=== PATIENT | female | born 1975 | race Caucasian/White ===

== ENCOUNTER 2017-07-03 11:04 | Emergency (ER) | payer MEDICAID ==
[~2017-07-03] VITALS: Ht 170.2 cm; Wt 81.4 kg
[2017-07-03 11:41] LABS: BASOPHILS % (AUTO) 0.1 % (0-1); EOSINOPHILS # (AUTO) 0.2 X10'3 (0-0.9); EOSINOPHILS % (AUTO) 1.9 % (0-6); HEMATOCRIT 44.2 % (35.0-45.0); HEMOGLOBIN 14.8 g/dl (12.0-16.0); LYMPHOCYTES # (AUTO) 1.2 X10'3 (1.1-4.8); MEAN CORPUSCULAR HEMOGLOBIN 28.5 PG (27.0-31.0); MEAN CORPUSCULAR HGB CONC 33.4 % (33.0-36.5); MEAN CORPUSCULAR VOLUME 85.2 FL (78-98); MEAN PLATELET VOLUME 8.4 FL (7.4-10.4); MONOCYTES # (AUTO) 0.3 X10'3 (0-0.9); MONOCYTES % (AUTO) 3.5 % (2-12); NEUTROPHILS # (AUTO) 6.6 X10'3 (1.8-7.7); NEUTROPHILS % (AUTO) 79.5 % (42-75); PLATELET COUNT 308 X10'3 (140-440); RED BLOOD COUNT 5.19 X10'6 (4.20-5.60); RED CELL DISTRIBUTION WIDTH 13.3 % (11.5-14.5); WHITE BLOOD COUNT 8.3 X10'3 (4.5-11.0)
[2017-07-03 11:44] LABS: URINE HCG NEGATIVE (NEG)
[2017-07-03 11:48] LABS: CLARITY,URINE CLEAR (Clear); COLOR,URINE YELLOW (Yellow); GLUCOSE, URINE NEGATIVE (Neg); KETONES,URINE NEGATIVE (Neg); LEUKOCYTE ESTERASE ,URINE NEGATIVE (Neg); NITRITES, URINE NEGATIVE (Neg); OCCULT BLOOD,URINE TRACE-INTACT (Neg); PROTEIN,URINE NEGATIVE (Neg); UROBILINOGEN,URINE 0.2 E.U/dL (0.2-1.0)
[2017-07-03 11:50] LABS: PROTHROMBIN TIME 10.4 SECONDS (9.0-12.0)
[2017-07-03] MEDS ORDERED: HYDROmorphone 1 mg/ml syringe IV PRN (11:50)
[2017-07-03] MEDS ORDERED: normal saline 1000ML IV soln IVB ONE (11:50)
[2017-07-03] MEDS ORDERED: ondansetron/PF 4mg/2ml inj IV ONE ×2 (11:50→13:40)
[2017-07-03 11:52] LABS: UA COLLECTION TYPE VOIDED
[2017-07-03 11:54] LABS: BACTERIA,URINE NONE SEEN /HPF (Neg); MUCUS STRANDS FEW /LPF (Neg); RBC,URINE 0-2 /HPF (0-2); SQUAMOUS EPITHELIAL CELL,UR FEW /LPF (FEW); TRANSITIONAL EPI CELLS,URINE FEW /HPF; WBC,URINE 0-4 /HPF (0-4)
[2017-07-03 11:57] LABS: ALANINE AMINOTRANSFERASE 27 U/L (12-78); ALBUMIN 4.5 G/DL (3.4-5.0); ALKALINE PHOSPHATASE 86 IU/L (46-116); ANION GAP 12 (8-16); ASPARTATE AMINO TRANSFERASE 18 U/L (10-37); BILIRUBIN,TOTAL 1.1 MG/DL (0.1-1.0); BLOOD UREA NITROGEN 12 MG/DL (7-18); CALCIUM 9.8 MG/DL (8.5-10.1); CHLORIDE 102 MMOL/L (99-107); GLUCOSE 108 MG/DL (70-104); POTASSIUM 3.1 MMOL/L (3.5-5.1); SODIUM 138 MMOL/L (135-145); TOTAL CARBON DIOXIDE 24.1 MMOL/L (24-32); TOTAL PROTEIN 8.8 G/DL (6.4-8.2); eGFR 79 ML/MIN
[2017-07-03] MEDS ORDERED: mag hydrox/Alum hydrox/simeth 30ml oral suspension PO ONE (12:00)
[2017-07-03] MEDS ORDERED: LIDOcaine Viscous 15ml cup PO ONE (12:00)
[2017-07-03 12:11] LABS: LIPASE 205 U/L (73-393)
[2017-07-03] MEDS ORDERED: potassium Cl 20 mEq SR tablet PO STA (12:37)
[2017-07-03] MEDS ORDERED: ONDA4TAB9 SL (13:33)
[2017-07-03 14:10] VITALS: BP 136/74
== END 2017-07-03 14:13 | disposition home or self-care (01) ==
LOC: ER 11:07
DX: E87.6 Hypokalemia (principal); R10.84 Generalized abdominal pain; R19.7 Diarrhea, unspecified; R11.2 Nausea with vomiting, unspecified; K21.9 Gastro-esophageal reflux disease without esophagitis
CPT/HCPCS: 36415; 76700; 80053; 81001; 81025; 83690; 85025; 85610; 96361; 96374; 96376; 99285; J1170; J2405

== ENCOUNTER 2018-02-12 12:12 | Emergency (ER) | payer MEDICAID ==
[~2018-02-12] VITALS: Ht 170.2 cm; Wt 88.6 kg
[2018-02-12 12:36] VITALS: BP 121/70
[2018-02-12] MEDS ORDERED: HYDR-3965 PO (13:18)
== END 2018-02-12 13:38 | disposition home or self-care (01) ==
LOC: ER 12:12
DX: S83.91XA Sprain of unspecified site of right knee, initial encounter (principal); K21.9 Gastro-esophageal reflux disease without esophagitis; X50.1XXA Overexertion from prolonged static or awkward postures, initial encounter; Y93.89 Activity, other specified; Y92.89 Other specified places as the place of occurrence of the external cause; Y99.8 Other external cause status
CPT/HCPCS: 29505; 99283

== ENCOUNTER 2019-11-07 07:14 | Outpatient (CLI) | payer MEDICAID ==
[~2019-11-07] VITALS: Ht 170.2 cm; Wt 86.2 kg
[2019-11-07] MEDS ORDERED: albuterol 2.5 MG/3 ML nebule NEB ONE (07:45)
== END 2019-11-07 23:59 | disposition home or self-care (01) ==
LOC: RT 07:14
PROVIDERS: ATTEND Family Medicine
DX: J98.8 Other specified respiratory disorders (principal); R06.02 Shortness of breath
CPT/HCPCS: 94060; 94760

== ENCOUNTER 2022-01-19 14:59 | Emergency (ER) | payer MEDICAID ==
[~2022-01-19] VITALS: Ht 170.2 cm; Wt 90.9 kg
[2022-01-19 15:13] VITALS: BP 146/114
[2022-01-19] MEDS ORDERED: HYDROcodone/acetaminophen 5mg/325mg tablet PO ONE (15:20)
[2022-01-19] MEDS ORDERED: orphenadrine citrate 60mg/2ml inj. IM ONE (15:20)
[2022-01-19] MEDS ORDERED: ketorolac trometh inj. 60 MG/2 ML VIAL IM ONE (15:20)
[2022-01-19] MEDS ORDERED: ORPH100T2 PO (17:05)
[2022-01-19] MEDS ORDERED: NAPR-56 PO (17:05)
[2022-01-19] MEDS ORDERED: TRAM50TA2 PO (17:05)
== END 2022-01-19 17:27 | disposition home or self-care (01) ==
LOC: ER 14:59
DX: S13.4XXA Sprain of ligaments of cervical spine, initial encounter (principal); M54.9 Dorsalgia, unspecified; K21.9 Gastro-esophageal reflux disease without esophagitis; V87.7XXA Person injured in collision between other specified motor vehicles (traffic), initial encounter; Y93.89 Activity, other specified; Y92.89 Other specified places as the place of occurrence of the external cause; Y99.8 Other external cause status
CPT/HCPCS: 72040; 96372; 99284; J1885; J2360; L0172

== ENCOUNTER 2023-06-16 11:36 | Emergency (ER) | payer MEDICAID ==
[~2023-06-16] VITALS: Ht 167.6 cm; Wt 97.1 kg
[~2023-06-16 11:36] MED LIST: ORPH100T4 PO
[2023-06-16 12:26] LABS: URINE HCG NEGATIVE (NEG)
[2023-06-16 12:27] LABS: BILIRUBIN,URINE NEGATIVE (Neg); CLARITY,URINE CLOUDY (Clear); COLOR,URINE AMBER (Yellow); GLUCOSE, URINE 100 mg/dl (Neg); KETONES,URINE 40 mg/dl (Neg); LEUKOCYTE ESTERASE ,URINE NEGATIVE (Neg); OCCULT BLOOD,URINE LARGE (Neg); PH,URINE 6.5 (4.8-8.0); PROTEIN,URINE >=300 mg/dl (Neg)
[2023-06-16 12:29] LABS: UA COLLECTION TYPE CLN CATCH MIDSTREAM
[2023-06-16 12:30] LABS: NITRITES, URINE NEGATIVE (Neg)
[2023-06-16] MEDS ORDERED: LORazepam 2 mg/ml vial IV ONE (12:40)
[2023-06-16] MEDS ORDERED: morphine 4 MG/ML inj SYRINge IV ONE (12:40)
[2023-06-16] MEDS ORDERED: normal saline 1000ML IV soln IVB ONE (12:40)
[2023-06-16] MEDS ORDERED: ketorolac tromethamine 15mg/ml inj. IV ONE (12:40)
[2023-06-16 12:46] LABS: RBC,URINE TNTC /HPF (0-2)
[2023-06-16 12:52] LABS: SQUAMOUS EPITHELIAL CELL,UR FEW /LPF (FEW)
[2023-06-16 12:55] LABS: TRANSITIONAL EPI CELLS,URINE FEW /HPF
[2023-06-16 13:03] LABS: BACTERIA,URINE 2+ /HPF (Neg)
[2023-06-16 13:29] LABS: BASOPHILS # (AUTO) 0.1 X10'3 (0-0.2); BASOPHILS % (AUTO) 0.5 % (0-1); EOSINOPHILS % (AUTO) 0 % (0-6); HEMATOCRIT 39.8 % (35.0-45.0); HEMOGLOBIN 13.2 g/dl (12.0-16.0); LYMPHOCYTES % (AUTO) 7.6 % (21-51); MEAN CORPUSCULAR HEMOGLOBIN 27.9 PG (27.0-31.0); MEAN CORPUSCULAR HGB CONC 33.1 g/dL (33.0-36.5); MEAN CORPUSCULAR VOLUME 84.5 FL (78-98); MEAN PLATELET VOLUME 7.4 FL (7.4-10.4); MONOCYTES # (AUTO) 0.5 X10'3 (0-0.9); MONOCYTES % (AUTO) 3.4 % (2-12); NEUTROPHILS % (AUTO) 88.5 % (42-75); PLATELET COUNT 370 X10'3 (140-440); RED BLOOD COUNT 4.71 X10'6 (4.20-5.60); RED CELL DISTRIBUTION WIDTH 13.7 % (11.5-14.5); WHITE BLOOD COUNT 13.5 X10'3 (4.5-11.0)
[2023-06-16 13:46] LABS: ALANINE AMINOTRANSFERASE 47 U/L (12-78); ALBUMIN 4.1 G/DL (3.4-5.0); ALKALINE PHOSPHATASE 78 IU/L (46-116); ANION GAP 9 (8-16); ASPARTATE AMINO TRANSFERASE 27 U/L (10-37); BILIRUBIN,TOTAL 0.7 MG/DL (0.1-1.0); BLOOD UREA NITROGEN 12 MG/DL (7-18); BUN/CREATININE RATIO 10.9 (10.0-20.0); CALCIUM 10.1 MG/DL (8.5-10.1); CHLORIDE 103 MMOL/L (99-107); GLUCOSE 118 MG/DL (70-104); LIPASE 62 U/L (16-77); POTASSIUM 3.9 MMOL/L (3.5-5.1); SODIUM 136 MMOL/L (135-145); TOTAL CARBON DIOXIDE 24.4 MMOL/L (24-32); TOTAL PROTEIN 8.3 G/DL (6.4-8.2); eCRCL 60 ML/MIN; eGFR 54 ML/MIN
[2023-06-16] MEDS ORDERED: CefTRIAXone 2gm/D5W 50ml BAG 50 ML IV SCH (14:05)
[2023-06-16] MEDS ORDERED: NITR100C6 PO (14:53)
[2023-06-16] MEDS ORDERED: ONDA8TAB13 PO (14:53)
[2023-06-16 14:59] VITALS: BP 123/74; PULSE 72; RESP 16; TEMP 98.1; O2SAT 99
== END 2023-06-16 20:27 | disposition home or self-care (01) ==
LOC: ER 11:36
DX: N39.0 Urinary tract infection, site not specified (principal); N20.0 Calculus of kidney; K21.9 Gastro-esophageal reflux disease without esophagitis; Z79.899 Other long term (current) drug therapy
CPT/HCPCS: 36415; 74176; 80053; 81001; 81025; 83690; 85025; 87088; 96361; 96365; 96375; 99285; J0696; J1885; J2060; J2270; J7030